=== PATIENT | female | born 1935 | race Two or more races ===

== ENCOUNTER 2018-07-20 16:08 | Emergency (ER) | payer MEDICARE, OTHER ==
[~2018-07-20] VITALS: Ht 152.4 cm; Wt 68.5 kg
[2018-07-20 16:13] VITALS: Ht 152.4 cm; Wt 68.5 kg
[2018-07-20 17:41] VITALS: BP 119/58
== END 2018-07-20 17:41 | disposition home or self-care (01) ==
LOC: ED 16:08
DX: B34.9 Viral infection, unspecified (principal); I10 Essential (primary) hypertension; K21.9 Gastro-esophageal reflux disease without esophagitis
CPT/HCPCS: 87804